=== PATIENT | female | born 1970 | race Caucasian/White ===

== ENCOUNTER → 2019-05-16 | Outpatient (CLI) | payer OTHER ==
[2019-05-16 12:26] VITALS: BP 110/71; PULSE 64; RESP 18; TEMP 97.8
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
== END ==
LOC: WWCWWP 11:26
PROVIDERS: ATTEND Surgery
DX: Z53.9 Procedure and treatment not carried out, unspecified reason (principal)

== ENCOUNTER → 2019-05-29 | Day surgery (SDC) | payer OTHER ==
[2019-05-29 07:17] VITALS: RESP 18; TEMP 98
--- NOTE | 2019-05-29 08:45 | P.OP ---
Date of Procedure: 05/29/19 Preoperative Diagnosis: Microcalcifications right breast of concern Postoperative Diagnosis: Same Procedure(s) Performed: Right breast stereotactic core biopsy Anesthesia: local Surgeon: Yesy Henderson Estimated Blood Loss (ml): 0 Pathology: other (breast tissue) Condition: stable Disposition: same day Indications for Procedure: Microcalcifications of concern in right breast Operative Findings: Dense breast tissue/radiograph revealed area of concern sampled Description of Procedure: Sheri is a 48-year-old white female who had a mammogram performed revealing microcalcifications of concern in the right breast. These are located in the middle third of the right breast 3:00 axis. It was recommended these be sampled via stereotactic core biopsy. The patient understood the risk and benefits and wished to proceed. The patient was brought to the stereotactic core biopsy room and positioned on the low rad table. A printing assistant film was obtained in the area of concern was identified. A medial to lateral approach was utilized. The skin was prepped using Betadine. 20 mL of 1% lidocaine were utilized to anesthetize the area of concern. 10 of the cc had epinephrine present. A 9-gauge vacuum-assisted core rotating biopsy needle was driven to the correct coordinates. The needle was fired. Post-fire views revealed the needle to be in the correct location. 12 core biopsy specimens were obtained. Radiograph of the specimen revealed that the area of concern had been sampled microcalcifications in the specimen. A secure marked top clip was placed. Radiograph revealed this to be in the correct location. The patient tolerated the procedure in stable condition. The patient will follow-up with Dr. Hayes next week. The specimen was sent to pathology.
[2019-05-29 08:52] VITALS: BP 119/79; PULSE 73
--- NOTE | 2019-05-29 09:29 | MM ---
EXAMINATION TYPE: MG stereo VAD BX RT DATE OF EXAM: 05/29/2019 COMPARISON: Outside mammograms dated 03/31/2019 and 03/24/2019 CLINICAL HISTORY: Indeterminate right breast calcifications for which stereotactic guided biopsy was requested TECHNIQUE: Stereotactic guided core biopsy of right breast. FINDINGS: The procedure of stereotactic guided core biopsy was explained to the patient. Benefits, alternatives, and risks were discussed. An informed consent was then obtained. A procedural timeout was performed. The shortness pathway for biopsy was chosen to target the central inner group of 6 mm calcifications in the right breast. Shortness pathway was medial to lateral approach. I performed the localization, then surgeon, Dr. Freddy Bradley performed the remainder of the procedure. A vacuum assisted biopsy gun was used to obtain multiple core samples. The patient tolerated the procedure well without any immediate complication. The patient was kept in the radiology department for short stay after the procedure and then discharged home in stable condition. Targeted calcifications are identified in specimen mammogram. Post biopsy mammogram shows the clip to appear in satisfactory position relative to the targeted area of concern on the preprocedure images. IMPRESSION: SUCCESSFUL, UNCOMPLICATED STEREOTACTIC GUIDED CORE BIOPSY OF A 6 MM GROUP OF CALCIFICATIONS IN THE CENTRAL INNER RIGHT BREAST, FULL PATHOLOGY RESULTS TO FOLLOW. Pathology Results: High Risk RIGHT BREAST, NEEDLE CORE BIOPSIES: Benign breast parenchyma with fibrocystic spectrum disease, focal sclerosing adenosis/radial scar, usual type duct hyperplasia (UDH) and numerous intraductal mineralizations. Recommendation Surgical consult of the right breast. (radial scar) MTDD
== END ==
LOC: RADMAMWWP 07:03
PROVIDERS: ATTEND Surgery
DX: N60.11 Diffuse cystic mastopathy of right breast (principal); N60.21 Fibroadenosis of right breast; N62 Hypertrophy of breast; R92.1 Mammographic calcification found on diagnostic imaging of breast; R92.8 Other abnormal and inconclusive findings on diagnostic imaging of breast; Z88.4 Allergy status to anesthetic agent; Z88.5 Allergy status to narcotic agent; Z91.048 Other nonmedicinal substance allergy status
CPT/HCPCS: 88305; 19081; A4648; J2001

== ENCOUNTER → 2019-12-01 | Outpatient (CLI) | payer OTHER ==
--- NOTE | 2019-12-01 10:48 | MM ---
Reason for exam: follow-up at short interval from prior study. History: Patient is postmenopausal and has history of high-risk lesion on a previous biopsy at age 48. High risk MG stereo VAD BX RT of the right breast, May 29, 2019. Taking estrogen for 2 years beginning at age 47. Taking progesterone for 2 years beginning at age 47. Physical Findings: Nurse did not find any significant physical abnormalities on exam. MG Diagnostic Mammo RT w CAD CC and MLO view(s) were taken of the right breast. The breast tissue is heterogeneously dense. This may lower the sensitivity of mammography. There are benign appearing round dystrophic calcifications in the right breast. Previous mammotome biopsy in the right breast. There is no new dominant lesion. These results were verbally communicated with the patient and result sheet given to the patient on 12/01/19. ASSESSMENT: Benign, BI-RAD 2 RECOMMENDATION: Follow-up diagnostic mammogram of both breasts in 4 months. Back on schedule for February 2020.
== END ==
LOC: RADMAMWWP 09:26
PROVIDERS: ATTEND Surgery
DX: R92.8 Other abnormal and inconclusive findings on diagnostic imaging of breast (principal); R92.0 Mammographic microcalcification found on diagnostic imaging of breast
CPT/HCPCS: 77065